=== PATIENT | male | born 1995 | race Caucasian/White ===

== ENCOUNTER 2023-11-15 15:48 | Emergency (ER) | payer BC, OTHER ==
[2023-11-15 15:54] VITALS: BP 124/77; PULSE 79; RESP 18; TEMP 98.1; BMI 20.5
[2023-11-15 16:37] LABS: EPI CELLS 1 /uL (0-25.1); HYALINE CASTS 8 /uL (0-3.1); URINE APPEARANCE CLEAR; URINE BACTERIA 11 /uL (0-1359); URINE BILIRUBIN NEGATIVE (NEGATIVE); URINE COLOR YELLOW; URINE GLUCOSE (UA) NEGATIVE (NEGATIVE); URINE KETONE TRACE (NEGATIVE); URINE LEUK ESTERASE 2+ (NEGATIVE); URINE NITRITE NEGATIVE (NEGATIVE); URINE PROTEIN TRACE (NEGATIVE); URINE RBC 11 /uL (0-23.9); URINE WBC 509 /uL (0-25.8)
[2023-11-15] MEDS ORDERED: IBUPROFEN 400 MG TABLET (FP) PO ONE (16:43)
[2023-11-15] MEDS: IBUPROFEN 400 MG TABLET (FP) PO ONE (16:47)
[2023-11-16 00:14] LABS: HIV INTERPRETATION NEGATIVE (NEGATIVE)
== END 2023-11-15 16:51 | disposition home or self-care (01) ==
LOC: JER 15:48 → JERFT 15:48
DX: R36.9 Urethral discharge, unspecified (principal)
CPT/HCPCS: 36415; 81003; 87389; 87491; 87591; 99284-25